=== PATIENT | female | born 1985 | race Caucasian/White ===

== ENCOUNTER 2018-02-15 12:12 | Emergency (ER) | payer OTHER ==
[~2018-02-15] VITALS: Ht 162.6 cm; Wt 98.4 kg
[~2018-02-15 12:12] MED LIST: ADVIL200 MG PO; ALPRAZOLAM1 MG PO; ALPRAZOLAM2 MG PO; AMITRIPTYLINE H25 MG PO; CALCIUM600 MG PO; CLIMARA1 EAC1 TD; CYCLOBENZAPRINE10 MG PO; DICLOFENAC SOD100 MG PO; DIFLUCAN100 MG PO; DILAUDID4 MG PO; FOLIC ACID0.4 MG PO; GABAPENTIN300 MG PO; KEPPRA XR750 MG PO; LACTAID FAS9000 UNIT PO; LAMICTAL25 MG PO; LYRICA25 MG PO; LYRICA75 MG PO; MOTRIN IB200 MG PO; NORCO 5-325 TA1 EACH PO; OXCARBAZEPINE150 MG PO; OXYCODONE HCL5 MG PO; OXYCONTIN30 MG PO; PAXIL20 MG PO; PROAIR HFA8.5 GM INH; REGLAN10 MG PO; RESTASIS1 DROP OD; RIZATRIPTAN10 MG PO; SUPER B COMPLE150 MG PO; VENLAFAXINE HC100 MG PO; VENLAFAXINE HCL75 MG PO; VERAPAMIL ER120 M1 PO; VITAMIN D1000 UNIT PO; VOLTAREN-XR100 MG PO; XANAX0.5 MG PO; ZOFRAN4 MG PO; ZYRTEC10 MG PO; [UNRECOGNIZED DRUG - OTHER] PO
[2018-02-15] MEDS ORDERED: CLONAZEPAM1 MG PO (12:27)
[2018-02-15] MEDS ORDERED: LEVETIRACETAM750 MG PO (12:28)
[2018-02-15] MEDS ORDERED: LYRICA150 MG PO (12:28)
[2018-02-15] MEDS ORDERED: TRAZODONE HCL50 MG PO (12:28)
[2018-02-15] MEDS ORDERED: LIDODERM1 EACH TD (13:03)
[2018-02-15] MEDS ORDERED: NAPROSYN500 MG PO (13:03)
[2018-02-15] MEDS ORDERED: ATIVAN1 MG PO (13:03)
== END 2018-02-15 13:12 | disposition home or self-care (01) ==
LOC: ED 12:12
DX: M54.5 Low back pain (principal); Z88.0 Allergy status to penicillin; Z88.8 Allergy status to other drugs, medicaments and biological substances; Z79.899 Other long term (current) drug therapy
CPT/HCPCS: 96372; 99283; J1885